=== PATIENT | female | born 1990 | race Caucasian/White ===

== ENCOUNTER 2024-03-06 20:32 | Emergency (ER) | payer BC ==
[2024-03-06] MEDS ORDERED: Ibuprofen 200 MG TAB ONE (21:01)
== END 2024-03-06 21:47 | disposition home or self-care (01) ==
LOC: NAV ERS 20:32
DX: S90.31XA Contusion of right foot, initial encounter (principal); I10 Essential (primary) hypertension; Z79.899 Other long term (current) drug therapy; W55.22XA Struck by cow, initial encounter

== ENCOUNTER 2025-10-14 09:41 | Outpatient (CLI) | payer BC | END 2025-10-14 09:42 | disposition home or self-care (01) | LOC: NAV RAD 09:41 | PROVIDERS: ATTEND Family Medicine | DX: J20.8 Acute bronchitis due to other specified organisms (principal); B96.89 Other specified bacterial agents as the cause of diseases classified elsewhere | CPT/HCPCS: 71046 ==